=== PATIENT | male | born 1975 | race Caucasian/White ===

== ENCOUNTER 2019-07-06 13:48 | Emergency (ER) | payer MEDICAID, OTHER ==
[~2019-07-06] VITALS: Ht 193 cm; Wt 83.2 kg
[~2019-07-06 13:48] MED LIST: LISI40TA4 PO
[2019-07-06 14:15] LABS: BASOPHILS % (AUTO) 0.9 % (0-1); HEMATOCRIT 46.2 % (42.0-52.0); LYMPHOCYTES # (AUTO) 1.6 X10'3 (1.1-4.8); LYMPHOCYTES % (AUTO) 39.2 % (21-51); MEAN CORPUSCULAR HGB CONC 34.7 g/dL (33.0-36.5); MEAN CORPUSCULAR VOLUME 101.1 FL (78-98); MEAN PLATELET VOLUME 8.4 FL (7.4-10.4); MONOCYTES # (AUTO) 0.5 X10'3 (0-0.9); NEUTROPHILS % (AUTO) 47.9 % (42-75); PLATELET COUNT 142 X10'3 (140-440); RED BLOOD COUNT 4.57 X10'6 (4.70-6.10); RED CELL DISTRIBUTION WIDTH 12.6 % (11.5-14.5); WHITE BLOOD COUNT 4.1 X10'3 (4.5-11.0)
[2019-07-06 14:20] LABS: PARTIAL THROMBOPLASTIN TIME 31 SECONDS (22-32)
[2019-07-06 14:21] LABS: ALANINE AMINOTRANSFERASE 126 U/L (12-78); ALBUMIN 3.6 G/DL (3.4-5.0); ALKALINE PHOSPHATASE 78 IU/L (46-116); ANION GAP 15 (8-16); ASPARTATE AMINO TRANSFERASE 128 U/L (10-37); BILIRUBIN,TOTAL 0.6 MG/DL (0.1-1.0); BLOOD UREA NITROGEN 14 MG/DL (7-18); BUN/CREATININE RATIO 16.9 (5.4-32.0); CALCIUM 8.4 MG/DL (8.5-10.1); CHLORIDE 102 MMOL/L (99-107); CREATININE 0.83 MG/DL (0.60-1.10); GLUCOSE 96 MG/DL (70-104); POTASSIUM 3.7 MMOL/L (3.5-5.1); SODIUM 137 MMOL/L (135-145); TOTAL CARBON DIOXIDE 20.1 MMOL/L (24-32); TOTAL PROTEIN 7.3 G/DL (6.4-8.2); eGFR > 90 ML/MIN
--- NOTE | 2019-07-06 16:10 | NUR ---
PT STATED THAT HE FEELS LIKE WHOLE ROOM IS SPINING ,PT SAID HE WOULD LIKE TO TALK TO PA ,NOTIFIED JEREMY BALDWIN .NICOLASA WILL TALK TO THE PT.
--- NOTE | 2019-07-06 16:30 | NUR ---
JEREMY BALDWIN SPOKE TO THE PT ALL QUESTION AND CONCERN ANSWERED,PT READY TO SIGN D/C PAPERWORK ,WILL D/C THE PT.
[2019-07-06 16:36] VITALS: BP 154/89
--- NOTE | 2019-07-06 16:42 | NUR ---
pt forgot his d/c paperwork in room.checked lobby but unable to find pt.
== END 2019-07-06 16:38 | disposition home or self-care (01) ==
LOC: ER 13:49
DX: R07.1 Chest pain on breathing (principal); R74.8 Abnormal levels of other serum enzymes; D75.89 Other specified diseases of blood and blood-forming organs; F10.10 Alcohol abuse, uncomplicated; F17.200 Nicotine dependence, unspecified, uncomplicated; Z98.890 Other specified postprocedural states; Z88.5 Allergy status to narcotic agent; Z79.899 Other long term (current) drug therapy; Y90.0 Blood alcohol level of less than 20 mg/100 ml
CPT/HCPCS: 36415; 71045; 80053; 84484; 85025; 85610; 85730; 93005; 99284

== ENCOUNTER 2024-08-25 08:52 | Emergency (ER) | payer OTHER ==
[~2024-08-25] VITALS: Ht 193 cm; Wt 83.6 kg
[~2024-08-25 08:52] MED LIST changes: +LISI40TA13 PO; -LISI40TA4 PO
[2024-08-25 09:26] LABS: BASOPHILS # (AUTO) 0.1 X10'3 (0-0.2); BASOPHILS % (AUTO) 0.9 % (0-1); EOSINOPHILS # (AUTO) 0.3 X10'3 (0-0.9); EOSINOPHILS % (AUTO) 3.9 % (0-6); HEMATOCRIT 38.6 % (42.0-52.0); HEMOGLOBIN 12.9 g/dl (14.0-17.9); LYMPHOCYTES # (AUTO) 1.1 X10'3 (1.1-4.8); LYMPHOCYTES % (AUTO) 15.7 % (21-51); MEAN CORPUSCULAR HEMOGLOBIN 37.3 PG (27.0-31.0); MEAN CORPUSCULAR HGB CONC 33.4 g/dL (33.0-36.5); MEAN CORPUSCULAR VOLUME 111.9 FL (78-98); MEAN PLATELET VOLUME 8.7 FL (7.4-10.4); MONOCYTES # (AUTO) 0.6 X10'3 (0-0.9); MONOCYTES % (AUTO) 8.6 % (2-12); NEUTROPHILS # (AUTO) 4.9 X10'3 (1.8-7.7); NEUTROPHILS % (AUTO) 70.9 % (42-75); PLATELET COUNT 111 X10'3 (140-440); RED BLOOD COUNT 3.45 X10'6 (4.70-6.10); WHITE BLOOD COUNT 6.9 X10'3 (4.5-11.0)
[2024-08-25 09:40] LABS: ALANINE AMINOTRANSFERASE 19 U/L (12-78); ALBUMIN 2.7 G/DL (3.4-5.0); ALBUMIN/GLOBULIN RATIO 0.5 (1.1-1.5); ALKALINE PHOSPHATASE 251 IU/L (46-116); ANION GAP 8 (8-16); ASPARTATE AMINO TRANSFERASE 61 U/L (10-37); BILIRUBIN,TOTAL 1.3 MG/DL (0.1-1.0); BLOOD UREA NITROGEN 5 MG/DL (7-18); BUN/CREATININE RATIO 9.8 (10.0-20.0); CALCIUM 7.8 MG/DL (8.5-10.1); CHLORIDE 109 MMOL/L (99-107); CREATININE 0.51 MG/DL (0.60-1.10); LIPASE 44 U/L (16-77); POTASSIUM 3.3 MMOL/L (3.5-5.1); SODIUM 142 MMOL/L (135-145); TOTAL CARBON DIOXIDE 25.5 MMOL/L (24-32); eCRCL 212 ML/MIN; eGFR > 90 ML/MIN
[2024-08-25 09:41] LABS: GLUCOSE 111 MG/DL (70-104)
[2024-08-25] MEDS ORDERED: iohexol 300mg/ml 100ml inj. ONE (09:48)
[2024-08-25] MEDS: LIDOcaine 1% W/epiNEPHrine 1:100,000 20ml vial SQ ONE (11:49)
[2024-08-25 12:07] VITALS: TEMP 98.7
[2024-08-25] MEDS ORDERED: POTA-192 PO (12:45)
[2024-08-25] MEDS ORDERED: FURO-150 PO (12:45)
[2024-08-25] MEDS ORDERED: SPIR25TA5 PO (12:45)
[2024-08-25 13:33] VITALS: BP 146/88; PULSE 88; RESP 18; O2SAT 96
[2024-08-25 14:32] LABS: BF MESOTHELIAL CELLS FEW; BF RBC COUNT 98 /CU MM; BF WBC COUNT 330 /CU MM (0-1000); BFAPPEAR HAZY; BFCOLOR YELLOW; BFSOURCE PERITONEAL FLD; BFVOLUME 15 ML; LYMPHOCYTES,BODY FLUID 52 %; MONOCYTES,BODY FLUID 6 %; NEUTROPHILS,BODY FLUID 42 %
== END 2024-08-25 13:38 | disposition home or self-care (01) ==
LOC: ER 08:52
DX: R10.84 Generalized abdominal pain (principal); K70.31 Alcoholic cirrhosis of liver with ascites; I10 Essential (primary) hypertension; Z88.8 Allergy status to other drugs, medicaments and biological substances; Z79.899 Other long term (current) drug therapy; Z98.890 Other specified postprocedural states
CPT/HCPCS: 36415; 49083; 74178; 80053; 82042; 83690; 85025; 89051; 99285; Q9967